=== PATIENT | male | born 1995 | race Caucasian/White ===

== ENCOUNTER 2018-11-06 20:07 | Emergency (ER) | payer SELFPAY ==
--- NOTE | 2018-11-06 21:10 | RAD ---
RIGHT FOOT THREE VIEWS: 11/06/18 HISTORY: 23-year-old male with history of injury after stepping on a nail. FINDINGS/IMPRESSION: No fracture or dislocation or other significant osseous abnormality. No evidence for metallic density foreign body. POS: [facility]
[2018-11-06] MEDS ORDERED: Adacel (T-DAP) 0.5 ML SYRINGE ONE (21:11)
== END 2018-11-06 22:11 | disposition home or self-care (01) ==
LOC: ERS 20:07
DX: S91.331A Puncture wound without foreign body, right foot, initial encounter (principal); L02.611 Cutaneous abscess of right foot; F17.210 Nicotine dependence, cigarettes, uncomplicated; Z23 Encounter for immunization; W22.8XXA Striking against or struck by other objects, initial encounter
CPT/HCPCS: 10060; 90471; 90715